=== PATIENT | female | born 1950 | race Caucasian/White ===

== ENCOUNTER → 2017-05-28 | Outpatient (CLI) | payer BC ==
[~2017-05-28] MED LIST: ACET-1256 PO; AMR2 PO; ASPEC81 PO; CALCTAB5 PO; CRG25 PO; HYDC25 PO; LRT5 PO; MULT-513 PO; NORE5TAB5 PO; OSTEOBI-FLEX; POTA10CA28 PO
== END | disposition home or self-care (01) ==
LOC: C.LABPVFM 17:06
PROVIDERS: ATTEND Family Medicine
DX: J02.9 Acute pharyngitis, unspecified (principal)

== ENCOUNTER → 2017-06-19 | Outpatient (CLI) | payer BC | END | disposition home or self-care (01) | LOC: C.LABPVFM 10:30 | PROVIDERS: ATTEND Family Medicine | DX: J02.9 Acute pharyngitis, unspecified (principal) ==

== ENCOUNTER → 2017-07-06 | Outpatient (CLI) | payer BC ==
--- NOTE | 2017-07-07 07:54 | MAMMOGRAPHY REPORT ---
BILATERAL DIGITAL SCREENING MAMMOGRAM WITH CAD: 07/06/2017 CLINICAL HISTORY: Routine screening. Patient has no complaints. TECHNIQUE: Bilateral CC and MLO views were obtained. Current study was also evaluated with a Compute r Aided Detection (CAD) system. COMPARISON: Comparison is made to exams dated: 12/31/2015 mammogram, 12/29/2014 mammogram, 09/06/2013 m ammogram - [facility], 06/30/2008, and 06/19/2006 mammogram - [facility]. BREAST COMPOSITION: There are scattered areas of fibroglandular density in both breasts. FINDINGS: An asymmetry in the lateral right breast appear similar on all available prior mammograms d ating back to at least 2007, therefore likely benign. No new suspicious mass, architectural distorti on or cluster of microcalcifications is seen. IMPRESSION: ACR BI-RADS CATEGORY 1: NEGATIVE There is no mammographic evidence of malignancy. A 1 year screening mammogram is recommended. The pa tient will receive written notification of the results. Approximately 10% of breast cancers are not detected with mammography. A negative mammographic report should not delay biopsy if a clinically suggestive mass is present. Sapphire Gurrola M.D. ay/:07/06/2017 16:16:47 [employer] Buffer: Nata Bean RT(R)(M), [facility] letter sent: Normal 1/2 BI-RADS Code: ACR BI-RADS Category 1: Negative
== END | disposition home or self-care (01) ==
LOC: C.MAMM 15:03
PROVIDERS: ATTEND Family Medicine
DX: Z12.31 Encounter for screening mammogram for malignant neoplasm of breast (principal)

== ENCOUNTER → 2017-08-14 | Outpatient (CLI) | payer OTHER | END | disposition home or self-care (01) | LOC: C.LABPVFM 13:15 | PROVIDERS: ATTEND Family Medicine | DX: R39.9 Unspecified symptoms and signs involving the genitourinary system (principal) ==

== ENCOUNTER → 2017-09-04 | Outpatient (CLI) | payer OTHER | END | disposition home or self-care (01) | LOC: C.LABPVFM 13:28 | PROVIDERS: ATTEND Family Medicine | DX: N39.0 Urinary tract infection, site not specified (principal) ==

== ENCOUNTER → 2017-09-04 | Outpatient (CLI) | payer OTHER ==
--- NOTE | 2017-09-04 12:24 | DIAGNOSTIC IMAGING REPORT ---
L HAND MIN 3 VIEWS ROUTINE HISTORY: 67 years-old Female LT HAND PAIN acute left hand pain COMPARISON: None available TECHNIQUE: 3 views of the left hand FINDINGS: Mild radiocarpal, first carpometacarpal and triscaphe degenerative changes. Mild periarticular osteopenia is noted in addition to multidigit mild metacarpal phalangeal and mild to moderate interphalangeal degenerative changes. Prominent subcortical cystic changes are seen involving the base of the third metacarpal. There is no acute fracture or dislocation identified. Mild dorsal wrist soft tissue swelling. Mild soft tissue swelling is also noted medial to the fifth metacarpal. IMPRESSION: 1. Mild dorsal wrist and medial hand soft tissue swelling without acute fracture or dislocation. 2. Osteopenic appearance of the bones with degenerative changes as above. The above report was generated using voice recognition software. It may contain grammatical, syntax or spelling errors. Electronically signed by: Eloy Barakat M.D. 09/04/2017 12:23 PM Dictated Date/Time: 09/04/2017 12:20 PM
== END | disposition home or self-care (01) ==
LOC: C.RAD1850 12:08
PROVIDERS: ATTEND Nurse Practitioner
DX: M79.642 Pain in left hand (principal)

== ENCOUNTER → 2017-09-14 | Outpatient (CLI) | payer OTHER ==
--- NOTE | 2017-09-14 13:54 | DIAGNOSTIC IMAGING REPORT ---
L KNEE 3 VIEWS HISTORY: 67 years-old Female L TEMPORAL PAIN, L KNEE PAIN acute left knee pain without reported trauma COMPARISON: None available TECHNIQUE: 3 views of the left knee FINDINGS: The bones appear mildly demineralized. Mild medial and lateral with mild to moderate patellofemoral compartment osteoarthritis. Small joint effusion. IMPRESSION: 1. Small joint effusion without acute fracture. 2. Tricompartmental osteoarthritis, most pronounced within the patellofemoral joint where there is mild to moderate disease. The above report was generated using voice recognition software. It may contain grammatical, syntax or spelling errors. Electronically signed by: Eloy Barakat M.D. 09/14/2017 1:53 PM Dictated Date/Time: 09/14/2017 1:52 PM
--- NOTE | 2017-09-14 13:56 | DIAGNOSTIC IMAGING REPORT ---
ORBITS BILATERAL MIN 4 VIEWS CLINICAL HISTORY: 67 years-old Female presenting with L TEMPORAL PAIN, L KNEE PAIN. TECHNIQUE: 4 views of the orbits were obtained. COMPARISON: None. FINDINGS: No radiopaque intraorbital foreign body. Bony orbits grossly intact. Paranasal sinuses grossly clear. Visualized portion of the calvarium intact. IMPRESSION: No intraorbital metallic foreign body to preclude MRI exam. Electronically signed by: Patrice Cross M.D. 09/14/2017 1:54 PM Dictated Date/Time: 09/14/2017 1:52 PM
== END | disposition home or self-care (01) ==
LOC: C.RAD1850 13:32
PROVIDERS: ATTEND Emergency Medicine
DX: R51 Headache (principal); M25.562 Pain in left knee; M25.462 Effusion, left knee; M17.12 Unilateral primary osteoarthritis, left knee

== ENCOUNTER → 2018-02-22 | Outpatient (CLI) | payer BC | END | disposition home or self-care (01) | LOC: C.LABPVFM 17:41 | PROVIDERS: ATTEND Family Medicine | DX: R35.0 Frequency of micturition (principal) ==